=== PATIENT | male | born 1940 | race Caucasian/White ===

== ENCOUNTER → 2020-05-17 | Outpatient (REF) | LOC: ZLAB.WCH 18:03 | DX: Z01.89 Encounter for other specified special examinations (principal) ==

== ENCOUNTER → 2020-05-31 | Outpatient (REF) ==
[~2020-05-31] MED LIST: 00186-0370-20 IH; ALDACTONE 25MG25 M1 PO; AMBIEN 10MG10 MG PO; AMIODARONE200 MG PO; ATIVAN 0.50.5 MG/TAB PO; BUPROPION SR150 MG PO; CARDURA 2MG2 MG PO; COREG 3.123.125 MG/T PO; COREG 6.256.25 MG/TA PO; COSOPT 2%-0.5%10 ML OU; COUMADIN 5MG5 MG/TAB PO; COUMADIN 77.5 MG/TAB PO; DEMADEX 20MG20 M1 PO; FLOMAX 0.40.4 MG/CAP PO; HCTZ12.5TAB PO; HYDROCODONE/APAP; IMDUR 60MG60 MG/TAB PO; K-DUR20 MEQ PO; LEVOTHYROXINE0.1 MG PO; LIPITOR 40MG TA40 MG PO; LISINOPRIL PO; MIRAPEX0.5 MG PO; NITROSTAT0.4 MG/TAB SL; NORCO 325 MG-51 TAB PO; NUPLAZID34 MG PO; OCUFLOX OPHTH DR5 ML OS; PACERONE200 MG PO; PLAVIX 75MG TAB75 MG PO; PROAIR HFA0.09 MG/AC IH; PROTONIX 40MG T40 MG PO; PULMICORT180 MCG/Ac IH; RAPAFLO8 MG PO; RESTORIL 1515 MG/CAP PO; ROXICODONE 55 MG/TAB PO; SYNTHROID0.112 MG/T PO; TRUSOPT 5 ML5 ML OP; TYLENOL 500MG500 MG PO; WELLBUTRIN PO; WELLBUTRIN SR150 M1 PO; XALATAN EYE DROPS OU; XARELTO20 MG PO; ZAROXOLYN5 MG PO; ZOLOFT 50MG50 MG PO; ZOLPIDEM10 MG PO
== END ==
LOC: ZLAB.WCH 17:54
DX: Z01.89 Encounter for other specified special examinations (principal)

== ENCOUNTER → 2021-08-06 | Outpatient (CLI) | payer MEDICARE | LOC: COL.RAD 09:21 | DX: M19.072 Primary osteoarthritis, left ankle and foot (principal) | CPT/HCPCS: A9503 ==

== ENCOUNTER 2023-06-18 12:13 | Outpatient (CLI) | payer MEDICARE ==
[~2023-06-18] VITALS: Ht 170.2 cm; Wt 87.6 kg
[~2023-06-18 12:13] MED LIST changes: -SYNTHROID0.112 MG/T PO; +SYNTHROID0.125 MG/T PO; +XANAX .25M0.25 MG/TA PO
[2023-06-18] MEDS ORDERED: NS 500 ML IV SCH (13:00)
[2023-06-18 13:06] VITALS: BP 117/66; PULSE 58; TEMP 98.4
--- NOTE | 2023-06-18 15:00 | NUR ---
Pt tolerated IVF without issue. IV Dc'd. Pt assisted out to ED entrance with belongings.
[2023-06-18] MEDS ORDERED: ARICEPT 5MG PO (17:42)
[2023-06-18] MEDS ORDERED: ASPIRIN E.C. 8181 MG PO (17:42)
[2023-06-18] MEDS ORDERED: ZYLOPRIM 300MG300 MG PO (17:42)
[2023-06-18] MEDS ORDERED: LIPITOR 40MG TA40 MG PO (17:43)
[2023-06-18] MEDS ORDERED: CALCIUM ANTACI500 MG PO (17:44)
[2023-06-18] MEDS ORDERED: IRON TABLETS325 MG PO (17:45)
[2023-06-18] MEDS ORDERED: FOLIC ACID 11 MG/TA1 PO (17:45)
[2023-06-18] MEDS ORDERED: METHOTREXA2.5 MG/TAB PO (17:47)
[2023-06-18] MEDS ORDERED: INDERAL 20MG20 MG PO (17:48)
[2023-06-18] MEDS ORDERED: B-121000 MCG PO (17:49)
[2023-06-29] MEDS ORDERED: XARELTO15 MG PO (14:00)
== END 2023-06-18 15:00 | disposition home or self-care (01) ==
LOC: EUO 12:13
DX: J11.1 Influenza due to unidentified influenza virus with other respiratory manifestations (principal); I50.32 Chronic diastolic (congestive) heart failure; E86.0 Dehydration
CPT/HCPCS: J7040

== ENCOUNTER 2023-06-20 16:52 | Emergency (ER) | payer MEDICARE ==
[~2023-06-20] VITALS: Ht 170.2 cm; Wt 88.6 kg
[~2023-06-20 16:52] MED LIST changes: +ARICEPT 5MG PO; +ASPIRIN E.C. 8181 MG PO; +B-121000 MCG PO; +CALCIUM ANTACI500 MG PO; +FOLIC ACID 11 MG/TA1 PO; +INDERAL 20MG20 MG PO; +IRON TABLETS325 MG PO; +METHOTREXA2.5 MG/TAB PO; +ZYLOPRIM 300MG300 MG PO
[2023-06-20 16:59] VITALS: TEMP 97.6
[2023-06-20] MEDS ORDERED: NS 1,000 ML IV ONE (17:15)
[2023-06-20 17:19] LABS: BASO % 0.3 % (0.0-2.0); EOS # 0.2 K/mm3 (0.0-0.7); GRAN # 4.5 K/mm3 (1.4-6.5); HEMATOCRIT 44.2 % (42.0-52.0); HEMOGLOBIN 14.2 g/dl (13.5-18.0); LYMPH # 1.5 K/mm3 (1.2-3.4); LYMPH % 21.9 % (20.0-51.0); MEAN CELL VOLUME 96 fl (80.0-100.0); MEAN CORPUSCULAR HEMOGLOBIN 31 pg (27-31); MEAN CORPUSCULAR HGB CONC 32 g/dl (33.0-37.0); MEAN PLATELET VOLUME 10.1 fl (7.4-10.4); MONO # 0.4 K/mm3 (0.1-0.6); MONO % 6.3 % (1.7-9.3); PLATELET COUNT 159 K/mm3 (130-400); RED BLOOD COUNT 4.61 M/mm3 (4.20-5.60); REDCELL DISTRIBUTION WIDTH-CV 15.8 % (11.5-14.5)
[2023-06-20 17:25] LABS: PH 5.5 (5.0-8.5); URINE APPEARANCE CLEAR (CLEAR/HAZY); URINE BLOOD TRACE (NEGATIVE); URINE COLOR Dark Yellow (YELLOW); URINE GLUCOSE NEGATIVE (NEGATIVE); URINE KETONE 1+ (NEGATIVE); URINE NITRATE NEGATIVE (NEGATIVE); URINE PROTEIN(semi-quant) TRACE (NEGATIVE)
[2023-06-20 17:30] LABS: BILIRUBIN,TOTAL 0.6 mg/dL (0.2-1.2); CALCIUM 9.1 mg/dL (8.4-10.2); CREATININE, serum 0.88 mg/dL (0.72-1.25); POTASSIUM 3.7 mmol/L (3.5-4.5); TOTAL PROTEIN 6.5 gm/dL (6.2-8.1)
[2023-06-20 17:31] LABS: COLLECTION METHOD CLEAN CATCH
[2023-06-20 17:36] LABS: TROPONIN-I 0.03 ng/mL (0.00-0.033)
[2023-06-20] MEDS ORDERED: DOXYCYCLINE 10100 MG PO (18:20)
[2023-06-20] MEDS ORDERED: PREDNISONE20 MG PO (18:20)
[2023-06-20 18:28] VITALS: BP 114/65; PULSE 52
[2023-06-20] MEDS ORDERED: Home Doxycycline Mono 100 MG #2 CAP/PACK PO ONE (18:30)
[2023-06-20] MEDS ORDERED: predniSONE 20 MG TAB PO ONE (18:30)
== END 2023-06-20 18:51 | disposition home or self-care (01) ==
LOC: COL.ER 16:52
PROVIDERS: Physician Assistant
DX: J10.1 Influenza due to other identified influenza virus with other respiratory manifestations (principal)
CPT/HCPCS: J7030; J7512